=== PATIENT | male | born 1965 | race Caucasian/White ===

== ENCOUNTER 2019-04-05 19:33 | Inpatient (IN) | payer OTHER ==
[~2019-04-05] VITALS: Ht 180.3 cm; Wt 92.1 kg
--- NOTE | 2019-04-05 20:00 | NUR ---
PT BIBRA C/O FEELING OF DEPRESSION. PT EXPRESSES THOUGHTS OF HARMING SELF, BUT STATES "I'M NOT SURE IF I'D DO IT" PT ADMITS TO METH USE X8HR UNDERCOLLAR BASTER. PT AAOX4. RESPIRATIONS EVEN AND UNLABORED. SKIN INTACT. PLACED IN GOWN, BELONGINGS COLLECTED, SITTER AT BEDSIDE. WILL CONTINUE TO MONITOR.
--- NOTE | 2019-04-05 20:10 | NUR ---
NOTED TACHYCARDIA AND HYPOTENSION. MD AWARE.
--- NOTE | 2019-04-05 20:11 | NUR ---
PT C/O CHEST PAIN AND SOB. DENIES NAUSEA, VOMITTING, HEADACHE. PLACED ON CONTINUOUS SLOT EDITOR AND PULSE OX. MADE AWARE.
[2019-04-05 20:18] LABS: BASOPHILS # (AUTO) 0.1 /CMM (0.0-0.2); BASOPHILS % (AUTO) 0.6 % (0.0-2.0); EOSINOPHILS % (AUTO) 0.1 % (0.0-6.0); HEMATOCRIT 45 % (39-51); HEMOGLOBIN 15.1 g/dL (13.5-17.5); LYMPHOCYTES # (AUTO) 1.1 /CMM (0.8-4.8); LYMPHOCYTES % (AUTO) 9.5 % (20.0-44.0); MEAN CORPUSCULAR HGB CONC 34 g/dl (31.0-36.0); MEAN CORPUSCULAR VOLUME 94 fL (80-96); MONOCYTES # (AUTO) 1.3 /CMM (0.1-1.30); MONOCYTES % (AUTO) 11.3 % (2.0-12.0); NEUTROPHILS # (AUTO) 8.9 /CMM (1.8-8.9); NEUTROPHILS % (AUTO) 78.5 % (43.0-81.0); PLATELET COUNT (AUTO) 213 /CMM (150-450); RED BLOOD CELL COUNT(AUTO) 4.79 MIL/uL (4.5-6.0); WHITE BLOOD COUNT (AUTO) 11.3 K/uL (4.3-11.0)
[2019-04-05 20:25] LABS: CALCIUM, SERUM 9.1 mg/dL (8.5-10.1); CARBON DIOXIDE 21 mmol/L (21-32); CHLORIDE 100 mmol/L (98-107); CREATININE 1.3 mg/dL (0.6-1.3); GLUCOSE 156 mg/dL (74-106); POTASSIUM 3.9 mmol/L (3.5-5.1); SODIUM SERUM 135 mmol/L (136-145); UREA NITROGEN, BLOOD 17 mg/dL (7-18)
--- NOTE | 2019-04-05 20:29 | NUR ---
PT O2 SATURATION 92% ON ROOM AIR, PLACED ON 2L NC. PT TOLERATED WELL. O2 SAT 97%
[2019-04-05] MEDS ORDERED: ASPIRIN 81 MG TAB.CHEW PO ONE (20:30)
[2019-04-05] MEDS ORDERED: IV NS 0.9% 1,000 ML BAG IV ONE ×2 (20:30)
--- NOTE | 2019-04-05 20:30 | NUR ---
GAVE MOVESHEET TO ADMITTING FOR INSURANCE AUTHORIZATION
[2019-04-05 20:31] LABS: ALANINE AMINOTRANSFERASE 24 U/L (12-78); ALBUMIN 3.7 g/dL (3.4-5.0); ALCOHOL, BLOOD < 3 mg/dL (0-0); ALKALINE PHOSPHATASE 99 U/L (46-116); ASPARTATE AMINOTRANSFERASE 25 U/L (15-37); BILIRUBIN,DIRECT 0.1 mg/dL (0.0-0.2); BILIRUBIN,TOTAL 0.5 mg/dL (0.2-1.0); TOTAL PROTEIN, SERUM 7.3 g/dL (6.4-8.2)
[2019-04-05 20:32] LABS: ACETAMINOPHEN < 10 ug/ml (10-30)
[2019-04-05] MEDS ORDERED: ASPIRIN 81 MG TAB.CHEW ONE (20:39)
--- NOTE | 2019-04-05 21:06 | NUR ---
PER ADMITTING, FAXING CLINICALS TO GOLF [facility]ER [facility]ISTANT AND GOLF PLAYER ASSISTANT WILL FOLLOW UP WITH MD TO MD CALL BACK
--- NOTE | 2019-04-05 21:20 | NUR ---
PT VSS. HR:93 BP:100/70 O2:99
--- NOTE | 2019-04-05 21:23 | NUR ---
PER ADMITTING RECEIVED AUTH TO ADMIT PT
--- NOTE | 2019-04-05 21:33 | NUR ---
BED ASSIGNMENT 315-2
[2019-04-05] MEDS ORDERED: DIVA500T2 PO (21:38)
[2019-04-05] MEDS ORDERED: QUET25TA PO (21:38)
[2019-04-05] MEDS ORDERED: SERT100T PO (21:38)
--- NOTE | 2019-04-05 21:42 | NUR ---
REPORT GIVEN TO CHAZ SHORT FOR HUMA
--- NOTE | 2019-04-05 22:00 | NUR ---
RECEIVED PATIENT FROM ED VIA GURNEY IN STABLE CONDITION. PATIENT AWAKE, A/OX4 AND ABLE TO VERBALIZE NEEDS AND PROVIDE HISTORY. NO C/O CP OR DISCOMFORT. PATIENT AMBULATORY WITH STRONG STEADY GAIT. NPO STATUS EXCEPT FOR MEDS MAINTAINED. PERIPHERAL LINE IN RAC #18 GAUGE INTACT AND PATENT. ONGOING TELE MONITORING READING SR @ 80BPM. ENCOURAGED USE OF CALL LIGHT FOR ASSISTANCE AND VERBALIZED GOOD UNDERSTANDING. ROOM FREE OF CLUTTER AND BELONGINGS KEPT NEAR BEDSIDE. BED IN LOW LOCK SETTING. WILL CONTINUE TO MONITOR.
[2019-04-05 22:34] LABS: APPEARANCE,URINE Clear (CLEAR); BILIRUBIN,URINE Negative (NEGATIVE); BLOOD, URINE Trace-lysed Ery/uL (NEGATIVE); COLOR,URINE Yellow (YELLOW); KETONES,URINE Negative (NEGATIVE); LEUKOCYTE ESTERASE ,URINE Negative (NEGATIVE); NITRITE, URINE Negative (NEGATIVE); PH,URINE 7.5 (5.0-8.0); PROTEIN,URINE Negative (NEGATIVE); UGLUCOSE Negative (NEGATIVE); UROBILINOGEN,URINE 0.2 EU/dL (0.2)
[2019-04-05] MEDS ORDERED: IV 1/2NS 1000 ML 1,000 ML IV PRN (23:00)
[2019-04-05] MEDS ORDERED: IBUPROFEN 600 MG TABLET PO PRN (23:00)
[2019-04-05] MEDS ORDERED: ZOLPIDEM TARTRATE 5 MG TABLET PO PRN (23:00)
[2019-04-05] MEDS ORDERED: ENOXAPARIN SODIUM 40 MG/0.4 ML DISP.SYRIN SQ SCH (23:00)
[2019-04-05] MEDS: IV NS 0.9% 1,000 ML IV PRN (23:26)
[2019-04-05 23:35] LABS: BACTERIA,URINE Few /HPF (None Seen); SQUAMOUS EPITHELIAL CELL,UR Rare /HPF (None Seen)
--- NOTE | 2019-04-06 06:50 | NUR ---
STUDENT ADMISSIONS CLERK OPENING NOTES PATIENT AWAKE, A/O X4; PATIENT RESTING IN BED COMFORTABLY WITH SAFETY PRECAUTIONS IN PLACE. BED LOCKED IN LOWEST POSITION, SIDE RAILS UP X2; CALL LIGHT WITHIN EASY REACH. PATIENT BREATHING EVEN AND UNLABORED. NO SIGNS OF ACUTE DISTRESS NOTED AT THIS TIME. TELE MONITOR READS SR 90. PATIENT RAC IV #18 CLEAN, INTACT AND PATENT, FLUSHING WELL; NO S/S OF REDNESS OR INFILTRATION. PATIENT AWARE OF NPO STATUS; WILL CONTINUE TO MONITOR.
[2019-04-06 07:00] LABS: BASOPHILS % (AUTO) 0.4 % (0.0-2.0); HEMATOCRIT 41 % (39-51); HEMOGLOBIN 13.8 g/dL (13.5-17.5); LYMPHOCYTES # (AUTO) 2.4 /CMM (0.8-4.8); LYMPHOCYTES % (AUTO) 30.2 % (20.0-44.0); MEAN CORPUSCULAR HGB CONC 34 g/dl (31.0-36.0); MEAN CORPUSCULAR VOLUME 94 fL (80-96); MONOCYTES # (AUTO) 0.9 /CMM (0.1-1.30); MONOCYTES % (AUTO) 11.9 % (2.0-12.0); NEUTROPHILS # (AUTO) 4.4 /CMM (1.8-8.9); NEUTROPHILS % (AUTO) 55.5 % (43.0-81.0); PLATELET COUNT (AUTO) 180 /CMM (150-450); RED BLOOD CELL COUNT(AUTO) 4.35 MIL/uL (4.5-6.0)
[2019-04-06 07:07] LABS: CALCIUM, SERUM 8.5 mg/dL (8.5-10.1); POTASSIUM 3.6 mmol/L (3.5-5.1)
--- NOTE | 2019-04-06 07:21 | NUR ---
BRAZER ELECTRONIC NOTES PATIENT ASLEEP IN BED WITH NO DISTRESS NOTED. CALL LIGHT WITHIN REACH. NO C/O PAIN OR DISCOMFORT. NPO EXCEPT FOR MEDS MAINTAINED AT ALL TIMES. PERIPHERAL LINE INTACT AND PATENT. BED IN LOW LOCK SETTING. ROOM FREE OF CLUTTER AND BELONGINGS KEPT NEAR BEDSIDE. WILL CONTINUE TO MONITOR
[2019-04-06 08:00] VITALS: BP 132/95
--- NOTE | 2019-04-06 08:50 | NUR ---
SEEN BY DR MORALES AND DR HOLLEY WHO STATED THAT THE PT WON'T NEED TO HAVE THE CT ANGIO HEART WITH 3D IMAGE PROCEDURE TO BE DONE.
[2019-04-06] MEDS ORDERED: ASPI-1152 PO (08:53)
[2019-04-06] MEDS ORDERED: ATOR10TA PO (08:53)
[2019-04-06] MEDS ORDERED: ASPIRIN EC 81 MG TABLET.DR PO SCH (09:00)
[2019-04-06] MEDS: IV NS 0.9% 1,000 ML IV PRN (11:30)
--- NOTE | 2019-04-06 14:02 | NUR ---
Seen by Crisis Team,Mandeep Cortes saying that patient does not meet 5150 or inpatient criteria. Patient to be discharged when medically cleared back to his residence and will F/U [facility] tomorrow for group and social work services.Patient will refill his psychiatric medications today and follow up outpatient with [facility] tomorrow to learn coping strategies
--- NOTE | 2019-04-06 14:20 | NUR ---
COSTUME MAKER NOTES PATIENT READY FOR DISCHARGE. ALL DISCHARGE INSTRUCTIONS GIVEN TO PATIENT AND HE VERBALIZED UNDERSTANDING. RAC IV HL REMOVED WITH NO ISSUES; NO BLEEDING NOTED. TIP STILL INTACT. PATIENT REFUSED PHOTO OF HIS LEFT FOOT; PATIENT IN A RAYMOND TO GET HOME. PATIENT WAS EDUCATED ON THE IMPORTANCE OF TAKING A PHOTO OF HIS FOOT, PATIENT UNDERSTOOD BUT TO NO AVAIL, PATIENT STILL REFUSED THE PHOTO. PATIENT BELONGING INVENTORY CHECK LIST DONE AND PATIENT VERBALIZED ALL HIS BELONGINGS ARE ACCOUNTED FOR. PATIENT ESCORTED BY [facility]; PATIENT LEFT HOSPITAL IN GOOD CONDITION.
[2019-04-06] MEDS ORDERED: ATORVASTATIN 10 MG TABLET PO SCH (22:00)
== END 2019-04-06 14:40 | disposition home or self-care (01) | DRG 812 ==
LOC: ER 19:40 → TELE 21:56 → MED 04-06 08:50
PROVIDERS: ADMIT Internal Medicine; ATTEND Internal Medicine
DX: T43.621A Poisoning by amphetamines, accidental (unintentional), initial encounter (principal); I21.A1 Myocardial infarction type 2; F32.9 Major depressive disorder, single episode, unspecified; I10 Essential (primary) hypertension; Z86.73 Personal history of transient ischemic attack (TIA), and cerebral infarction without residual deficits; F15.10 Other stimulant abuse, uncomplicated; Y92.89 Other specified places as the place of occurrence of the external cause; F41.9 Anxiety disorder, unspecified; I25.2 Old myocardial infarction; I20.1 Angina pectoris with documented spasm; F17.210 Nicotine dependence, cigarettes, uncomplicated
CPT/HCPCS: 36415; 71045-TC; 80048-TC; 80061-TC; 80076-TC; 80305; 81000-TC; 84484-TC; 85025-TC; 87081-TC; 93307-TC; G0378; G0480; J1650; J7030

== ENCOUNTER 2019-07-25 16:45 | Inpatient (IN) | payer OTHER ==
[~2019-07-25] VITALS: Ht 180.3 cm; Wt 96.6 kg
[~2019-07-25 16:45] MED LIST: ASPI-1152 PO; ATOR10TA PO; DIVA500T2 PO; QUET25TA PO; SERT100T PO
[2019-07-25] MEDS ORDERED: NITROGLYCERIN 0.4 MG/TAB BOTTLE ONE (16:55)
[2019-07-25] MEDS ORDERED: ASPIRIN 325 MG TABLET ONE (16:55)
--- NOTE | 2019-07-25 16:55 | NUR ---
chest tightness since yesterday 10am 11/12 ps. patient a/ox4, breathing even and unlabored, no sob noted. Needs attended, kept comfortable.
[2019-07-25] MEDS ORDERED: NITROGLYCERIN 0.4 MG/TAB BOTTLE SL ONE (17:00)
[2019-07-25] MEDS ORDERED: ASPIRIN 325 MG TABLET PO ONE (17:00)
--- NOTE | 2019-07-25 17:00 | NUR ---
Note ciraone in EDM - 07/25/19 at 1815 by AIDE [email or web address], from home, c/o chest tightness since yesterday 10am 8/10 ps. Patient a/ox4, breathing even and unlabored, no sob noted, needs attended. Kept comfortable. Attached to the trim operator.
[2019-07-25 17:06] LABS: BASOPHILS % (AUTO) 0.6 % (0.0-2.0); EOSINOPHILS % (AUTO) 1.6 % (0.0-6.0); HEMATOCRIT 43 % (39-51); HEMOGLOBIN 14.4 g/dL (13.5-17.5); LYMPHOCYTES # (AUTO) 1.7 /CMM (0.8-4.8); LYMPHOCYTES % (AUTO) 23.9 % (20.0-44.0); MEAN CORPUSCULAR HGB CONC 34 g/dl (31.0-36.0); MEAN CORPUSCULAR VOLUME 96 fL (80-96); MONOCYTES % (AUTO) 14.1 % (2.0-12.0); NEUTROPHILS # (AUTO) 4.3 /CMM (1.8-8.9); NEUTROPHILS % (AUTO) 59.8 % (43.0-81.0); PLATELET COUNT (AUTO) 162 /CMM (150-450); RED BLOOD CELL COUNT(AUTO) 4.43 MIL/uL (4.5-6.0); WHITE BLOOD COUNT (AUTO) 7.2 K/uL (4.3-11.0)
[2019-07-25 17:14] LABS: CALCIUM, SERUM 8.4 mg/dL (8.5-10.1); CREATININE 1.1 mg/dL (0.6-1.3); POTASSIUM 2.9 mmol/L (3.5-5.1)
[2019-07-25] MEDS ORDERED: IV NS 0.9% 1,000 ML BAG IV ONE (17:30)
[2019-07-25] MEDS ORDERED: POTASSIUM CHLORIDE 20 MEQ TAB.PRT.SR PO ONE ×2 (17:30→17:38)
--- NOTE | 2019-07-25 17:31 | NUR ---
PATIENT C/O +SI/HI, "I HAVENT SLEPT IN DAYS, I FEEL LIKE RUNNING INTO TRAFFIC OR TO NEVER WAKE UP AGAIN" DR. BARRAGAN MADE AWARE.
[2019-07-25 17:45] LABS: ALANINE AMINOTRANSFERASE 39 U/L (12-78); ALBUMIN 3.8 g/dL (3.4-5.0); ALCOHOL, BLOOD 144 mg/dL (0-0); ALKALINE PHOSPHATASE 116 U/L (46-116); ASPARTATE AMINOTRANSFERASE 34 U/L (15-37); BILIRUBIN,DIRECT 0.4 mg/dL (0.0-0.2); BILIRUBIN,TOTAL 1.2 mg/dL (0.2-1.0)
[2019-07-25 17:51] LABS: ACETAMINOPHEN < 2 ug/ml (10-30); SALICYLATE 1.2 mg/dL (2.8-20.0)
[2019-07-25] MEDS ORDERED: QUET100T PO (18:02)
--- NOTE | 2019-07-25 18:26 | NUR ---
REPORT GIVEN TO MICHAEL CM.
--- NOTE | 2019-07-25 19:12 | NUR ---
PER GABRIEL MONTEJO MD STATED PATIENT WILL BE TRANSFERRED TO [facility]
--- NOTE | 2019-07-25 19:30 | NUR ---
PT ON SUICIDE AND FALL PRECAUTIONS. SITTER AT BEDSIDE FOR SAFETY. CALL LIGHT WITHIN REACH. NO ACUTE DISTRESS NOTED.
[2019-07-25 19:33] LABS: APPEARANCE,URINE Clear (CLEAR); BILIRUBIN,URINE Negative (NEGATIVE); BLOOD, URINE Small Ery/uL (NEGATIVE); COLOR,URINE Yellow (YELLOW); KETONES,URINE Negative (NEGATIVE); LEUKOCYTE ESTERASE ,URINE Negative (NEGATIVE); NITRITE, URINE Negative (NEGATIVE); PROTEIN,URINE Negative (NEGATIVE); UGLUCOSE Negative (NEGATIVE); UROBILINOGEN,URINE 0.2 EU/dL (0.2)
--- NOTE | 2019-07-25 19:54 | NUR ---
PT MADE AWARE OF TRANSFER
[2019-07-25 19:56] LABS: BACTERIA,URINE Rare /HPF (None Seen); SQUAMOUS EPITHELIAL CELL,UR Few /HPF (None Seen); WBC,URINE NONE SEEN /HPF (0-3)
--- NOTE | 2019-07-25 20:00 | NUR ---
PT DENIES CHEST PAIN AT THIS TIME. VSS. NO ACUTE DISTRESS NOTED. HR IN THE 80'S
--- NOTE | 2019-07-25 20:01 | NUR ---
CALLED ADMITTING TO F/U WITH ROUNDSMAN FOR TRANSFER UPDATE.
--- NOTE | 2019-07-25 21:00 | NUR ---
PT AMBULATED TO THE RESTROOM W/ STEADY GAIT.
--- NOTE | 2019-07-25 21:32 | NUR ---
CALLED ADMITTING TO F/U WITH TRANSFER.
--- NOTE | 2019-07-25 21:49 | NUR ---
SPOKE TO MICHAEL ANTHONYAL LEASE BROKER STATES STILL NO BED AVAILABLE AT [facility] AT THIS TIME.
--- NOTE | 2019-07-25 22:08 | NUR ---
[place] STUDENT SERVICES DEAN MICHAEL CALLED BACK STATES "I CALLED [facility] AND THEY STILL DON'T HAVE A BED AND THEY SAID THEY DONT KNOW WHEN THEY WILL HAVE A BED".
--- NOTE | 2019-07-25 22:32 | NUR ---
SPOKE TO MICHAEL REGARDING PT ADMISSION TO FACILITATE CONTINUITY OF CARE
--- NOTE | 2019-07-25 22:38 | NUR ---
TRANSFER INFO RECEIVED FROM LAND DEGRADATION ANALYST MICHAEL PT ACCEPTED AT [facility] ACCEPTING MD SCHROEDER PHONE # FOR REPORT [phone]
--- NOTE | 2019-07-25 22:42 | NUR ---
PT ENDORSES THE NEED FOR PSYCHIATRIC HELP. PT DENIES SI AT THIS TIME, BUT STILL ENDORSES HI W/ A PLAN TO KILL HIS NEIGHBORS W/ A BASEBALL BAT. PT STILL ON SAFETY PRECAUTIONS. SITTER AT BEDSIDE
--- NOTE | 2019-07-25 22:43 | NUR ---
PT PLACED ON 2 LITERS O2. SATTING AT 91% RA.
--- NOTE | 2019-07-25 23:00 | NUR ---
[facility] REFUSE PT ADMISSION DUE TO SUICIDAL IDEATION PER VIDEO SOFTWARE ENGINEER MICHAEL AND WILL TALK TO HER FELLMONGERY WORKER IF PT CAN BE ADMITTED HERE INSTEAD. AWAITING CALL BACK.
--- NOTE | 2019-07-25 23:17 | NUR ---
TERRI ABARCA TALKING TO [place] ORNELAS REGARDING PT.
--- NOTE | 2019-07-25 23:27 | NUR ---
TREE SURGEON HELPER AT BEDSIDE FOR REPEAT TROPONIN
[2019-07-25 23:37] LABS: POTASSIUM 3.6 mmol/L (3.5-5.1)
--- NOTE | 2019-07-26 00:26 | NUR ---
SPOKE TO [facility] MILIND AUTH #[id number]. WILL PAGE DR. MORALES TO ADMIT PT.
--- NOTE | 2019-07-26 00:52 | NUR ---
TERRI ABARCA TALKING TO DR. MORALES ERGARDING PT ADMISSION.
--- NOTE | 2019-07-26 00:52 | NUR ---
PT MADE AWARE OF ADMISSION HERE IN THE HOSPITAL.
[2019-07-26] MEDS ORDERED: DIVA500T2 PO (00:59)
[2019-07-26] MEDS ORDERED: SERT100T PO (00:59)
[2019-07-26] MEDS ORDERED: QUET50TA PO (01:00)
--- NOTE | 2019-07-26 01:19 | NUR ---
REPORT GIVEN TO HAN ANTUNEZ
[2019-07-26 01:30] VITALS: BP 131/74
--- NOTE | 2019-07-26 01:30 | NUR ---
TELE/RN ADMITTING NOTES: RECEIVED REPORT FROM TERRI VELEZ NURSE. PT ARRIVED TO THE UNIT AT 0130 VIA GURNEY UNDER ACLS PROTOCOL, IN STABLE CONDITION. PT. IS A/OX4, VERBALLY RESPONSIVE AND ABLE TO MAKE NEEDS KNOWN. ON ROOM AIR, NO SOB NOTED. NO S/S OF DISTRESS. NO C/O PAIN AT THIS TIME. STATES HE HAS "SLIGHT TIGHTNESS IN THE CHEST BUT IT'S TOLERABLE AND FEEL BETTER THAN BEFORE". ON TELE MONITORING WITH READING OF NSR HR:81. INITIAL VS TAKEN AND DOCUMENTED.BP: 131/74, HR: 75, RR:20, TEMP:98.2 O2SAT: 97%. PATIENT IS CALM AT THE MOMENT, DENIES SUICIDAL IDEATION BUT STATES HE WANTS TO HARM OTHERS. PER PT. "DON'T WORRY I WON'T HURT YOU. I JUST WANNA KILL MY NEIGHBOR WITH A BAT, AND I DON'T CARE WHAT [employer] DOES TO ME. I WILL SHOW THEM." PT. STATES HE IS UPSET TOWARDS HIS NEIGHBORS AND [employer] COMPLAINING ABOUT HIM, CAUSING HIM STRESS AND CHEST PAIN. PT ALSO STATES HE'S BEEN SOBER FRO FEW MONTHS AND STARTED DRINKING AGAIN LAST WEEK, DRINKING 1 BOTTLE OF VODKA EVERY DAY, FOR A WEEK STRAIGHT WHILE TAKING HIS PSYCH MEDS WHICH HE THINK MIGHT'VE CAUSED CHEST PAIN. BELONGINGS LIST CHECKED BY MECHANIC RECOVERY. PT. IS ORIENTED TO THE UNIT AND STAFF. SKIN IS INTACT UPON INITIAL INSPECTION BUT PT. REFUSES FOR A FULL BODY SKIN ASSESSMENT. PT IS AMBULATORY WITH STEADY GAIT. WILL BE PLACED ON NPO FOR CT ANGIO IN THE MORNING (CONSENT OBTAINED). EXPLAINED TO PT. THAT DR. MORALES ORDERED FOR A 1:1 SITTER. SAFETY MEASURES KEPT IN PLACE. BED IN LOW, LOCKED POSITION WITH SR UP X2. WILL CONTINUE TO MONITOR ACCORDINGLY.
--- NOTE | 2019-07-26 01:33 | NUR ---
PT TRANSFERED PER ACLS PROTOCOL.
--- NOTE | 2019-07-26 02:00 | NUR ---
TELE/RN NOTES: CALLED PHARMACY TO CLARIFY TYLENOL ORDER, AND REGARDING PT'S ALLERGY TO ACETAMINOPHEN AND HYDROCODONE (IN VICODIN). PER PT "I AM NOT ALLERGIC TO TYLENOL ACETAMINOPHEN, I'VE TAKEN IT BEFORE AND DID NOT HAVE ANY REACTIONS. I'M ONLY ALLERGIC TO VICODIN." PER PHARMACY "PT. CAN TOLERATE ACETAMINOPHEN, AND IS MORE LIKELY TO BE AFFECTED WITH THE HYDROCODONE ASPECT OF VICODIN. JUST OBSERVE FOR ANY POTENTIAL SIDE EFFECTS". WILL CONTINUE TO MONITOR.
[2019-07-26] MEDS ORDERED: ACETAMINOPHEN 325 MG TABLET PO PRN (02:30)
[2019-07-26 04:00] VITALS: BP 117/80
[2019-07-26 04:44] VITALS: BP 117/80
--- NOTE | 2019-07-26 05:05 | NUR ---
TELE/RN NOTES: PT. IS STABLE NC/O PAIN OR DISCOMFORT AT THIS TIME. SLEEPING COMFORTABLY IN BED. REQUESTING TO HAVE SNACKS. EXPLAINED TO PATIENT THAT HE NEEDS TO BE NPO FOR CT ANGIO IN THE MORNING. PT. UNDERSTOOD.WILL CONTINUE MONITORING,
--- NOTE | 2019-07-26 06:46 | NUR ---
TELE/RN CLOSING NOTES: PATIENT REMAINS A/OX4, VERBALLY RESPONSIVE AND ABLE TO MAKE NEEDS KNOWN. ON ROOM AIR, NO SOB NOTED. NO S/S OF DISTRESS. NO C/O PAIN AT THIS TIME. TELE MONITORING WITH READING OF NSR HR:90. PATIENT IS WANTS BENADRYL AND ATIVAN. EXPLAINED TO PT. HE DOESN'T HAVE AN ORDER BUT WILL ENDORSE BUT WILL ENDORSE FOR NEXT SHIFT. PT. COMPLAINS WANTING A SNACK. EXPLAINED TO PT. AGAIN HE NEEDS TO BE NPO FOR THE CT ANGIO. SITTER PRESENT AT BEDSIDE. SAFETY MEASURES KEPT IN PLACE. BED IN LOW, LOCKED POSITION WITH SR UP X2. WILL ENDORSE TO NEXT SHIFT FOR HUMA.
[2019-07-26 06:52] LABS: BASOPHILS % (AUTO) 0.2 % (0.0-2.0); EOSINOPHILS % (AUTO) 2.4 % (0.0-6.0); HEMATOCRIT 41 % (39-51); LYMPHOCYTES # (AUTO) 3.1 /CMM (0.8-4.8); LYMPHOCYTES % (AUTO) 36.7 % (20.0-44.0); MEAN CORPUSCULAR HGB CONC 35 g/dl (31.0-36.0); MEAN CORPUSCULAR VOLUME 95 fL (80-96); MONOCYTES % (AUTO) 11.5 % (2.0-12.0); NEUTROPHILS # (AUTO) 4.2 /CMM (1.8-8.9); NEUTROPHILS % (AUTO) 49.2 % (43.0-81.0); PLATELET COUNT (AUTO) 161 /CMM (150-450); RED BLOOD CELL COUNT(AUTO) 4.28 MIL/uL (4.5-6.0); WHITE BLOOD COUNT (AUTO) 8.6 K/uL (4.3-11.0)
[2019-07-26 07:16] LABS: ALBUMIN 3.6 g/dL (3.4-5.0); BILIRUBIN,TOTAL 1.3 mg/dL (0.2-1.0); CALCIUM, SERUM 8.4 mg/dL (8.5-10.1); POTASSIUM 3.5 mmol/L (3.5-5.1); TOTAL PROTEIN, SERUM 6.7 g/dL (6.4-8.2)
[2019-07-26 08:00] VITALS: BP 154/80
--- NOTE | 2019-07-26 08:00 | NUR ---
received pt. this am alert and oriented x3,little agitated.vs stable.has 1:1 sitter.npo for procedure.
[2019-07-26] MEDS ORDERED: IOHEXOL-350 100 ML VIAL IV ONE (08:28)
[2019-07-26] MEDS ORDERED: NITROGLYCERIN 0.4 MG/TAB BOTTLE ONE ×2 (08:40→09:26)
[2019-07-26] MEDS ORDERED: METOPROLOL TARTRATE INJ 5 MG/5 ML AMPUL ONE ×3 (08:40→09:55)
--- NOTE | 2019-07-26 08:53 | NUR ---
Pt for CTA, Explained to patient about the procedures and agrees to it, Consent signed. Patient was placed on the CT table, hooked up to monitor, gave the first dose of metoprolol 5mg IVP, suddenly patient refused to continue the test. Will bring back the patient to his room 304-1 , [place] SHORT made aware.
[2019-07-26] MEDS ORDERED: NITROGLYCERIN 0.4 MG/TAB BOTTLE SL ONE (09:00)
[2019-07-26] MEDS: METOPROLOL TARTRATE INJ 5 MG/5 ML AMPUL IVP PRN ×6 (09:02→09:56)
--- NOTE | 2019-07-26 09:18 | NUR ---
given aqtivan per dr. lenka simental.
[2019-07-26] MEDS ORDERED: LORAZEPAM INJ 2 MG/ML VIAL IV ONE (09:30)
--- NOTE | 2019-07-26 10:00 | NUR ---
taken down for angiogram and brought back.dr. og into .talking to pt.pt. so far refusing angio.
--- NOTE | 2019-07-26 10:06 | NUR ---
Pt agrees to do it again after Dr Pandey spoke to the patient and gave Ativan 1 mg IVP for relaxation. Completed the test. total dose of metoprolol 30mg and nitro 0.04 SL. Patient doesn't really cooperates with the instraction. HAN Ho made aware.
[2019-07-26] MEDS: DIVALPROEX SODIUM 500 MG TABLET.DR PO SCH ×2 (11:35→17:00)
[2019-07-26] MEDS: ASPIRIN 81 MG TAB.CHEW PO SCH (11:35)
[2019-07-26] MEDS: SERTRALINE HCL 50 MG TABLET PO SCH (11:35)
[2019-07-26] MEDS ORDERED: METOPROLOL TARTRATE 50 MG TABLET PO SCH (12:00)
--- NOTE | 2019-07-26 14:30 | NUR ---
vey sleepy this afternoon.awaiting eval from dr. conway.home meds entered in computer.
[2019-07-26 16:00] VITALS: BP 112/74
--- NOTE | 2019-07-26 17:00 | NUR ---
late afternoon depakote held as sleeping. has 24 hr. sitter.
--- NOTE | 2019-07-26 19:20 | NUR ---
TELE/RN PM OPENING NOTE REPORT RECIEVED DOLORES MILLAN RN. PATIENT A/OX4, VERBALLY RESPONSIVE AND ABLE TO MAKE NEEDS KNOWN. PT HAS JAKE REEDER CNA AT BEDSIDE, FOR RECENT HX OF PATIENT EXPRESSING HE WANTED TO HARM HIS NEIGHBOR. PSYCH EVALL PENDING. ON ROOM AIR, NO SOB NOTED. NO S/S OF DISTRESS. SAFETY MEASURES KEPT IN PLACE. BED IN LOW, LOCKED POSITION WITH SR UP X2. WILL CONT TO MONITOR.
[2019-07-26 20:00] VITALS: BP 104/71
[2019-07-26] MEDS ORDERED: QUETIAPINE FUMARATE 100 MG TABLET PO SCH (22:00)
[2019-07-26] MEDS ORDERED: ATORVASTATIN 10 MG TABLET PO SCH (22:00)
[2019-07-26] MEDS ORDERED: QUETIAPINE FUMARATE 25 MG TABLET PO ONE (22:30)
--- NOTE | 2019-07-26 22:32 | NUR ---
SPOKE WITH PRACTIONER ADRIÁN REGARDING PATIENTS MEDICATIONS AND LACK OF PRN IN CASE PATIENT GETS ANXIOUS TONIGHT. REVIEWED PATIENTS CASE AND RECIEVED ORDER FOR SEROQUEL ONE TIME 12.5 MG PRN ANXIOUS/AGITATION.
--- NOTE | 2019-07-27 06:35 | NUR ---
RN PM CLOSING NOTE PATIENT A/OX4, AWAKENS TO VOICE. PT HAS JAKE REEDER CNA AT BEDSIDE, FOR RECENT HX OF PATIENT EXPRESSING HE WANTED TO HARM HIS NEIGHBOR. PSYCH EVALL STILL PENDING. ON ROOM AIR, NO SOB NOTED. NO S/S OF DISTRESS. SAFETY MEASURES KEPT IN PLACE. BED IN LOW, LOCKED POSITION WITH SR UP X2. PT STATES "I CANT WAIT UNTIL BREAKFAST."
--- NOTE | 2019-07-27 07:30 | NUR ---
MS/RN Opening note Received patient in bed, AO x 4, able to responds all stimuli. pt does no c/o pain or any discomfort, skin is warm to touch, kept clean/dry, intact IV ssite. Addendum: 07/27/19 at 1212 by CARRIE MCALLISTER RN Error
--- NOTE | 2019-07-27 07:30 | NUR ---
MS/RN Opening note Received patient in bed, AO x 4, compliance and able to responds all stimuli. pt does no c/o pain or any discomfort, skin is warm to touch, kept clean/dry, intact IV site. Respiratory even and unlabored in room air. Keep lower position of the bed with locked wheel fro safety. Sitter at bed side, call light within reach. Will continue to monitor.
[2019-07-27] MEDS: DIVALPROEX SODIUM 500 MG TABLET.DR PO SCH ×2 (08:48→16:00)
[2019-07-27] MEDS: ASPIRIN 81 MG TAB.CHEW PO SCH (08:48)
[2019-07-27] MEDS: SERTRALINE HCL 50 MG TABLET PO SCH (08:48)
--- NOTE | 2019-07-27 12:05 | NUR ---
SW Consult SW was consulted to meet with the pt due to his homicidal ideation as well as substance abuse. SW met with the pt at bedside and conducted an assessment. Pt appeared to be alert and oriented x4 (time, place, self and situation). Pt appeared to be in a depressed mood and presented with an agitated affect. Pt stated that he has been having trouble with his neighbors and would like to kill them. SW asked the pt to identify their names for [place] purposes but the pt refused. Pt stated that he was feeling suicidal and homicidal. Pts toxicology was positive for amphetamines so the SW discussed the pts drug use with him and then provided him with substance abuse referrals. SW asked the pt if he would be willing to be transferred to [facility] voluntarily and the pt agreed. Plan: The plan for this pt is to discharge the pt and admit the pt to [facility] on a voluntary hold.
--- NOTE | 2019-07-27 12:12 | NUR ---
SHANTAL contacted Obed ([phone]), Admissions from [facility], and informed him of the pt. He asked the SW to fax over the clinical to [phone] and stated that he would save a bed for the pt.
--- NOTE | 2019-07-27 16:23 | NUR ---
Otto: SHANTAL called [facility] ([phone]) and spoke to Residential Team Leader #[id number]. SW stated that the pt is going to be discharged to [facility] on a voluntary hold but threatened to kill his neighbors that he will not identify. Residential Team Leader stated that he will get some officers to meet the pt and make a report before his discharge.
--- NOTE | 2019-07-27 16:25 | NUR ---
SHANTAL contacted Obed ([phone]), Admissions from [facility], and informed him that the clearance and alcohol level were faxed over. He stated that a bed is ready for the pt to be discharged to.
[2019-07-27] MEDS ORDERED: METOPROLOL TARTRATE INJ 5 MG/5 ML AMPUL IVP PRN (16:30)
[2019-07-27] MEDS ORDERED: NITROGLYCERIN 0.4 MG/TAB BOTTLE SL ONE (16:30)
--- NOTE | 2019-07-27 17:22 | NUR ---
MS RN NOTES RECEIVED A CALL FROM FRED (NOVELTY MAKER FROM [facility]) AND STATED THAT PATIENT IS ACCEPTED AND PATIENT WILL BE UNDER DR. BLACKMON (PSYCH) AND DR. PIMENTEL (LAMINATION INSPECTOR) AND TO CALL FOR REPORT TO KIM .
--- NOTE | 2019-07-27 18:10 | NUR ---
Patient transfer to [facility], given report Bob at [phone].
== END 2019-07-27 19:45 | disposition short-term general hospital (02) | DRG 190 ==
LOC: ER 16:46 → TELE 07-26 01:04 → MED 07-26 12:20
PROVIDERS: ADMIT Internal Medicine; ATTEND Internal Medicine
DX: I21.4 Non-ST elevation (NSTEMI) myocardial infarction (principal); F31.5 Bipolar disorder, current episode depressed, severe, with psychotic features; R45.850 Homicidal ideations; E78.5 Hyperlipidemia, unspecified; E87.6 Hypokalemia; Z86.73 Personal history of transient ischemic attack (TIA), and cerebral infarction without residual deficits; I10 Essential (primary) hypertension; F10.10 Alcohol abuse, uncomplicated; Y90.6 Blood alcohol level of 120-199 mg/100 ml; I25.10 Atherosclerotic heart disease of native coronary artery without angina pectoris; Z95.5 Presence of coronary angioplasty implant and graft; Z81.8 Family history of other mental and behavioral disorders; Z79.899 Other long term (current) drug therapy; Z79.82 Long term (current) use of aspirin; Z59.0 Homelessness; F17.200 Nicotine dependence, unspecified, uncomplicated; F41.9 Anxiety disorder, unspecified; G47.00 Insomnia, unspecified; I25.84 Coronary atherosclerosis due to calcified coronary lesion; Z88.6 Allergy status to analgesic agent; Z88.5 Allergy status to narcotic agent; Z88.8 Allergy status to other drugs, medicaments and biological substances; F19.10 Other psychoactive substance abuse, uncomplicated
CPT/HCPCS: 36415; 71045-TC; 75574; 80048-TC; 80053-TC; 80061-TC; 80076-TC; 80305; 81000-TC; 83735-TC; 84132-TC; 84484-TC; 85025-TC; 87081-TC; G0378; G0480; J2060; J3490; J7030; Q9967